=== PATIENT | female | born 1980 | race Caucasian/White ===

== ENCOUNTER 2017-05-24 17:15 | Emergency (ER) | payer OTHER ==
[2017-05-24 17:31] VITALS: BP 136/72
--- NOTE | 2017-05-24 17:41 | UC ---
Eye Complaint HPI - HPI Summary HPI Summary: 37 YEAR OLD FEMALE PRESENTS WITH WORSENING LEFT EYE REDNESS AND SWELLING. SHE WAS SEEN AT AN URGENT CARE YESTERDAY AND GIVE CIPRO DROPS. - History of Current Complaint Chief Complaint: UCEye Stated Complaint: EYE IRRITATION Time Seen by Provider: 05/24/17 17:35 Hx Last Menstrual Period: a few months ago. - Allergies/Home Medications Allergies/Adverse Reactions: Allergies Allergy/AdvReac Type Severity Reaction Status Date / Time Varenicline [From Chantix] Allergy Severe Anaphylatic Verified 07/09/15 13:54 Shock Metaxalone [From Skelaxin] Allergy Intermediate tongue Verified 07/09/15 13:54 swelling Aripiprazole [From Abilify] Allergy LIPS AND Verified 07/09/15 13:54 EYES TWITCH Nicotine Allergy Rash Verified 07/09/15 13:54 POWDER IN LATEX Allergy Rash Uncoded 07/09/15 13:54 Home Medications: Home Medications Naproxen Sodium [Naproxen 550 mg] 550 mg PO 05/24/17 [History] PMH/Surg Hx/FS Hx/Imm Hx Previously Healthy: Yes - Surgical History Surgical History: Yes Surgery Procedure, Year, and Place: TMJ bilat; carpal tunnel bilat 2X; pinched nerve Lt elbow release; bunions bilat to both feet lt foot removal of hardware. - Social History Alcohol Use: None Substance Use Type: None Smoking Status (MU): Former Smoker When Did the Patient Quit Smoking/Using Tobacco: 2011 Review of Systems Constitutional: Negative Skin: Negative Eyes: Drainage, Eye Redness ENT: Negative Respiratory: Negative Cardiovascular: Negative Gastrointestinal: Negative Genitourinary: Negative Motor: Negative Neurovascular: Negative Musculoskeletal: Negative Neurological: Negative Psychological: Negative All Other Systems Reviewed And Are Negative: Yes Physical Exam Triage Information Reviewed: Yes Vital Signs: Initial Vital Signs Temp 37.2 C 05/24/17 17:26 Pulse 81 05/24/17 17:26 Resp 18 05/24/17 17:26 BP 136/72 05/24/17 17:26 Pulse Ox 100 05/24/17 17:26 Eyes: Positive: Conjunctiva Inflamed, Discharge ENT Exam: Normal Dental Exam: Normal Neck exam: Normal Neck: Positive: 1 Respiratory Exam: Normal Cardiovascular Exam: Normal Abdominal Exam: Normal Musculoskeletal Exam: Normal Neurological Exam: Normal Psychological Exam: Normal Skin Exam: Normal Eye Complaint Course/Dx - Differential Dx/Diagnosis Differential Diagnosis/HQI/PQRI: Conjunctivitis Provider Diagnoses: CONJUNCTIVITIS Discharge - Discharge Plan Condition: Stable Disposition: HOME Prescriptions: Amoxicillin PO (*) [Amoxicillin 500 MG CAP*] 500 mg PO TID #30 cap Tobramycin/Dexameth OPTH.SUSP* [Tobradex 0.3-0.1%*] 1 drop LEFT EYE Q6H #1 btl Patient Education Materials: Eye Foreign Body (ED), Conjunctivitis (ED) Referrals: Nette Browne MD [Primary Care Provider] - If Needed Papi Solorio MD [Medical Doctor] -
[2017-05-24] MEDS ORDERED: Tetracaine 0.5% OPTH.SOL 4 ML* 1 DROP BTL LEFT EYE ONE (17:44)
[2017-05-24] MEDS ORDERED: Amoxicillin/Clavulanate TAB* 875 MG PO ONE (18:00)
[2017-05-24] MEDS ORDERED: Tobramycin 0.3% OPHTH.SOL* 5 ML BOT (regular eye drops) LEFT EYE ONE (18:01)
== END 2017-05-24 18:18 | disposition home or self-care (01) ==
LOC: UCEAST 17:15
DX: H10.9 Unspecified conjunctivitis (principal); Z91.040 Latex allergy status; Z87.891 Personal history of nicotine dependence
CPT/HCPCS: 99213; A9270-GY; G0463

== ENCOUNTER 2017-07-18 17:20 | Emergency (ER) | payer OTHER ==
[2017-07-18] MEDS ORDERED: NS 0.9% 1000 ML* 1,000 ML IV ONE (18:28)
[2017-07-18] MEDS ORDERED: Ketorolac INJ* 30 MG/ML 1 ML VIAL IV ONE (18:28)
[2017-07-18] MEDS ORDERED: diPHENhydraMINE IV* 50 MG/ML 1 ml VIAL (BENADRYL) IV ONE (18:28)
[2017-07-18] MEDS ORDERED: Metoclopramide IV* 5 MG/ML 2 ML VIAL IV ONE (18:28)
[2017-07-18 21:10] VITALS: BP 111/43
--- NOTE | 2017-07-18 23:34 | ED ---
Catie Goldman Emily, scribed for Florentin Dos Santos MD on 07/18/17 at 1834 . Headache - HPI Summary HPI Summary: This patient is a 37 year old F presenting to [facility] with a chief complaint of a right, frontal headache that began at 1000. The CC is described as a migraine. The patient rates the pain 9/10 in severity. Symptoms aggravated by light, strong smells, and noise. Symptoms alleviated by nothing. Patient reports nausea. Pt has a history of migraines. - History Of Current Complaint Chief Complaint: EDHeadache Stated Complaint: POSS MIGRAINE Time Seen by Provider: 07/18/17 18:02 Hx Obtained From: Patient Hx Last Menstrual Period: a few months ago. Onset/Duration: Sudden Onset, Started hours ago, Still Present Initially Headache Was: Severe Currently Pain Is: Severe Timing: Constant, Hours Character: Migraine Aggravating Factor: Other - Light, strong smells, and sound Associated Signs And Symptoms: Nausea - Allergies/Home Medications Allergies/Adverse Reactions: Allergies Allergy/AdvReac Type Severity Reaction Status Date / Time Varenicline [From Chantix] Allergy Severe Anaphylatic Verified 07/18/17 17:30 Shock Metaxalone [From Skelaxin] Allergy Intermediate tongue Verified 07/18/17 17:30 swelling Aripiprazole [From Abilify] Allergy LIPS AND Verified 07/18/17 17:30 EYES TWITCH Metoclopramide [From Reglan] Allergy Diaphoresis Verified 07/18/17 20:07 Nicotine Allergy Rash Verified 07/18/17 17:30 POWDER IN LATEX Allergy Rash Uncoded 07/18/17 17:30 PMH/Surg Hx/FS Hx/Imm Hx Previously Healthy: No Endocrine/Hematology History: Denies: Hx Diabetes, Hx Thyroid Disease Cardiovascular History: Denies: Hx Hypertension Respiratory History: Denies: Hx Asthma, Hx Chronic Obstructive Pulmonary Disease (COPD) GI History: Reports: Hx Gastroesophageal Reflux Disease - ON MEDICATION FOR Denies: Hx Ulcer Sensory History: Denies: Hx Contacts or Glasses, Hx Hearing Aid Opthamlomology History: Denies: Hx Contacts or Glasses Neurological History: Reports: Hx Migraine - TREATS WITH RELPAX AND ALEVE- 1-2 TIMES PER WEEK, Other Neuro Impairments/Disorders - BIPOLAR Psychiatric History: Reports: Hx Anxiety - PANIC ATTACKS IN THE PAST- NOT RECENTLY, Hx Depression - Surgical History Surgery Procedure, Year, and Place: TMJ bilat; carpal tunnel bilat 2X; pinched nerve Lt elbow release; bunions bilat to both feet lt foot removal of hardware. Hx Anesthesia Reactions: Yes - "CHILD SURGERY TOOK A WHILE TO WAKE UP" Infectious Disease History: No Infectious Disease History: Denies: Hx Hepatitis, Hx Human Immunodeficiency Virus (HIV), Traveled Outside the [place] in Last 30 Days - Family History Known Family History: Positive: Diabetes - Social History Alcohol Use: None Substance Use Type: Reports: None Smoking Status (MU): Former Smoker Review of Systems Positive: Nausea Positive: Headache All Other Systems Reviewed And Are Negative: Yes Physical Exam Triage Information Reviewed: Yes Vital Signs On Initial Exam: Initial Vitals Temp Pulse Resp BP Pulse Ox 97.8 F 80 14 123/63 100 07/18/17 17:25 07/18/17 17:25 07/18/17 17:25 07/18/17 17:25 07/18/17 17:25 Vital Signs Reviewed: Yes Appearance: Positive: Well-Appearing, Pain Distress - Moderate distress Skin: Positive: Warm, Skin Color Reflects Adequate Perfusion, Dry Head/Face: Positive: Normal Head/Face Inspection Eyes: Positive: Normal ENT: Positive: Normal ENT inspection Neck: Positive: Supple, Nontender Respiratory/Lung Sounds: Positive: Clear to Auscultation, Breath Sounds Present Cardiovascular: Positive: RRR Abdomen Description: Positive: Nontender, Soft Bowel Sounds: Positive: Present Musculoskeletal: Positive: Normal Neurological: Positive: Normal Psychiatric: Positive: Affect/Mood Appropriate Diagnostics - Vital Signs Vital Signs Temp Pulse Resp BP Pulse Ox 07/18/17 17:25 97.8 F 80 14 123/63 100 - Laboratory Lab Statement: Any lab studies that have been ordered have been reviewed, and results considered in the medical decision making process. Headache Course/Dx - Course Course Of Treatment: Ms. Martini presented c/o a typical migraine SHANE that wouldn 't go away. She reponded well to a 'migraine cocktail' of benadryl, ketorolac, reglan and IV NS. - Diagnoses Provider Diagnoses: Migraine Discharge - Discharge Plan Condition: Stable Disposition: HOME Patient Education Materials: Migraine Headache (ED) Referrals: [facility] [place] PHYSICIAN REFERRAL [Outside] - 1 Week Additional Instructions: RETURN TO THE EMERGENCY DEPARTMENT FOR CHANGING OR WORSENING SYMPTOMS. The documentation as recorded by the Catie story Emily accurately reflects the service I personally performed and the decisions made by me, Florentin Dos Santos MD.
== END 2017-07-18 21:09 | disposition home or self-care (01) ==
LOC: ED 17:20
DX: G43.909 Migraine, unspecified, not intractable, without status migrainosus (principal); Z87.891 Personal history of nicotine dependence; R11.0 Nausea
CPT/HCPCS: 96374; 96375; 99282; J1200; J1885; J2765